=== PATIENT | female | born 1985 ===

== ENCOUNTER 2023-08-14 12:37 | Emergency (ER) | payer OTHER, SELFPAY ==
[2023-08-14 12:43] VITALS: BMI 32.0
[2023-08-14 12:47] VITALS: BP 132/75
[2023-08-14 13:01] VITALS: BP 122/80
[2023-08-14 13:10] LABS: % Basophils 0.4 % (0-2); % Eosinophils 0.2 % (0-6); % Immature Granulocytes 0.9 % (0-0.5); % Lymphocytes 7.5 % (20.5-51.1); % Monocytes 6.2 % (1.7-9.3); % Neutrophils 84.8 % (42.2-75.2); Absolute Basophils 0.1 10^3/uL (0-0.2); Absolute Eosinophils 0.1 10^3/uL (0-0.7); Absolute Immature Granulocytes 0.3 10^3/uL (0-0.05); Absolute Monocytes 1.7 10^3/uL (0.1-0.6); Absolute Neutrophils 22.7 10^3/uL (1.4-6.5); Hematocrit 45.5 % (37.0-47.0); Hemoglobin 15.6 g/dL (12.0-16.0); Mean Corp Hgb Conc. 34.3 g/dL (33.0-37.0); Mean Corpuscular Hgb 30.1 pg (27.0-31.0); Mean Corpuscular Volume 87.8 fL (81.0-99.0); Mean Platelet Volume 9.9 fL (7.4-10.4); Nucleated Red Blood Cells % 0 %; Platelet Count 438 10^3/uL (130-400); Red Blood Cell Count 5.18 10^6/uL (4.20-5.40); Red Cell Dist. Width 12.5 % (11.5-14.5); White Blood Cell Count 26.8 10^3/uL (4.8-10.8)
[2023-08-14 13:20] LABS: HCG, Serum Qualitative Screen Negative
[2023-08-14 13:21] LABS: ALT (SGPT) 26 U/L (0-35); AST (SGOT) 30 U/L (14-36); Albumin 5.1 g/dl (3.5-5.0); Alkaline Phosphatase 151 U/L (38-126); Blood Urea Nitrogen 12 mg/dl (7-17); Calcium 10.2 mg/dl (8.4-10.2); Carbon Dioxide 19 mmol/L (22-30); Chloride 104 mmol/L (98-107); Estimated Creatinine Clearance 103 ml/min; Glucose 127 mg/dl (70-99); Lipase 69 U/L (23-300); Potassium 4.6 mmol/L (3.5-5.1); Sodium 142 mmol/L (135-145); Total Bilirubin 0.4 mg/dl (0.2-1.3); Total Protein 9.1 g/dl (6.3-8.2); eGFR > 60.00
[2023-08-14 13:24] LABS: Lactic Acid 6.8 mmol/L (0.7-2.0)
--- NOTE | 2023-08-14 13:27 | ED.GENMED ---
History of Present Illness
General
Chief Complaint: Abdominal Pain
Source: patient
Time Seen by Provider: 08/14/23 13:19
Travel History
Have you had any contact with someone who has COVID-19?: No
Do you have any symptoms of coronavirus? Fever > 100 degrees, chills, cough, shortness of breath, sore throat, loss of taste or smell, muscle aches, or headache?: No
History of Present Illness
History of Present Illness:
38-year-old female presents to the emergency room complaining of nausea, vomiting, diarrhea and abdominal discomfort. Patient began feeling unwell last night. She feeling much worse this morning. She estimates was at least 5 episodes of vomiting.
Had at least 5 episodes of diarrhea. She is unaware of any blood or mucus in the stool. She is unaware of any sick contacts. Patient feels shaky and cold.
Phy Exam
Physical Exam
Physical Exam:
General: Awake, Alert, Oriented X3. Patient appears to feel unwell, somewhat anxious
Vitals: Not tachycardic, normal blood pressure
Head: Atraumatic
Eyes: Pupils equal, EOMI
Throat: Airway intact, no exudates, dry mucosa
Neck: Trachea midline
Lungs: Clear and equal b/l
Heart: Regular rate, no murmurs
Abd: Soft, no significant reproducible tenderness, No pulsatile mass
Neuro: Nonfocal
Skin: Warm, dry, no rash
Extremities: pulses equal b/l, no edema, appears somewhat peripherally vasoconstricted with pale and cool digits
Course
Orders/Labs/Results
Orders:
Orders
08/14/23 12:44
Electrocardiogram (*1) Urgent
Reason for Study: Abdominal Pain
EKG- Treatment ONCE
08/14/23 12:46
Test Result ONCE
08/14/23 12:56
Complete Blood Count/With Diff Urgent
Comprehensive Metabolic Panel Urgent
HCG, Serum Qualitative Screen Urgent
Lactic Acid Urgent
Lipase Urgent
Troponin I Urgent
Blood Culture Urgent
WILSON Source: Blood/Venous
Specimen Description:
08/14/23 13:04
Drug Screen, Urine [Urine Drug Abuse Screen] Urgent
Date Specimen was Collected: 08/14/23
Time Specimen was Collected: 13:03
Fentanyl, Urine Urgent
Urinalysis Reflex To Culture Urgent
Date Specimen was Collected: 08/14/23
Time Specimen was Collected: 13:03
Urine Microscopic Reflex Cult Urgent
08/14/23 13:25
Diphenhydramine [Benadryl] 25 mg IV NOW STA
Lactated Ringers [Lr] 1,000 ml IV BOLUS
Metoclopramide [Reglan] 10 mg IV NOW STA
08/14/23 13:26
CT Abd/pelvis W Iv Cont Urgent
Comment:
Reason For Exam: abd pain, elevated lactic acid
08/14/23 15:10
Lactate Level [Lactic Acid] Urgent
Abnormal Lab Results
08/14/23 08/14/23 08/14/23
12:56 13:04 15:10
WBC 26.8 H 10^3/uL
(4.8-10.8)
Plt Count 438 H 10^3/uL
(130-400)
Abs Immat Gran (auto) 0.3 H 10^3/uL
(0-0.05)
Absolute Neuts (auto) 22.7 H 10^3/uL
(1.4-6.5)
Absolute Monos (auto) 1.7 H 10^3/uL
(0.1-0.6)
Immature Gran % 0.9 H %
(0-0.5)
Neutrophils % 84.8 H %
(42.2-75.2)
Lymphocytes % 7.5 L %
(20.5-51.1)
Carbon Dioxide 19 L mmol/L
(22-30)
Glucose 127 H mg/dl
(70-99)
Lactic Acid 6.8 H* mmol/L 2.7 H mmol/L
(0.7-2.0) (0.7-2.0)
Alkaline Phosphatase 151 H U/L
(38-126)
Total Protein 9.1 H g/dl
(6.3-8.2)
Albumin 5.1 H g/dl
(3.5-5.0)
Urine Ketones 2+ A
(Negative)
Urine Bilirubin 2+ A
(Negative)
Leukocyte Esterase Rfl Trace A
(Negative)
Urine RBC 3-6 A /HPF
(0-2)
Urine Bacteria (Reflex) Few A
(Negative)
Urine Albumin (Reflex) 1+ A
(Neg - Trace)
U Benzodiazepines Scrn Positive H
(Negative)
08/14/23 12:56
08/14/23 12:56
Vital Signs
Initial and Last Documented VS:
Initial Vital Signs
Temp Pulse Resp BP Pulse Ox
97.1 F 73 23 132/75 100
08/14/23 12:47 08/14/23 12:47 08/14/23 12:47 08/14/23 12:47 08/14/23 12:47
Last Documented Vital Signs
Temp Pulse Resp BP Pulse Ox
97.1 F 89 16 122/74 97
08/14/23 12:47 08/14/23 17:15 08/14/23 17:15 08/14/23 17:00 08/14/23 17:15
MDM/Problems Addressed
Differential Diagnosis Includes:
Dehydration,, diverticulitis, viral gastroenteritis,
MDM/Problems Addressed:
Patient presents with weakness, diarrhea and generally feeling poorly. She was hyperventilating on arrival and appeared to have carpopedal spasm. She was treated with IV fluids, antiemetics and slowly calmed down. Her vital signs improved
significantly. She had an initial lactate which is quite elevated but this has normalized after IV fluids. Patient has ambulated to the bathroom. She feels much better. Currently she just feels generally weak. She has never been febrile.
Patient stable for discharge home. Patient did have urinalysis but it has a increased number of squamous epithelial cells suggesting contamination.
*Radiology
Radiology exam reviewed: radiology read reviewed
*Pulse Oximetry
Patient hypoxic: no
*EKG
Interpreted by ED Provider?: Yes
Interpretation: normal
Heart Rate: 73
Rate: normal
Rhythm: sinus
[place]: normal axis
Interval: normal interval
QRS Pattern: normal QRS
Ischemia: no ischemia
*Alterations Workroom Clerk Interpretation
Rate: normal
Rhythm: sinus
*Critical Care Note
Total Time (30-74mins, 75-104mins- exclusive of procedures): Not Applicable
ED Attending Note
-
Portions of this chart may have been created with voice recognition software.� Occasional wrong word or��sound alike� substitutions may have occurred due to the inherent limitations of voice recognition software.
Discharge Plan
Departure
Patient Disposition: Home (Routine Discharge)
Date of Disposition: 08/14/23
Time of Disposition: 17:44
Patient with high blood pressure during this ER visit?: No
Condition: Good
Discharge Problem:
Gastroenteritis, Diarrhea
Instructions: Diarrhea in teens and adults, Low Fiber Diet, Dehydration, Adult ED
Prescriptions:
New
ondansetron 4 mg tablet,disintegrating
4 mg PO TID PRN (Reason: nausea and vomiting) Qty: 20 0RF
No Action
fluoxetine [Prozac] 40 mg Capsule
40 mg PO DAILY
trazodone 50 mg Tablet
50 mg PO HSPRN PRN (Reason: sleep)
cetirizine [Zyrtec] 10 mg Tablet
10 mg PO DAILY
levonorgestrel-ethinyl estrad 0.1-20 mg-mcg tablet
1 tab PO DAILY
fluticasone propionate [Flonase] 50 mcg/actuation Emblem,Suspension
1 spray INTRANASAL DAILY
Referrals:
Anna Agrawal CRNP [Family Provider] -
Interventions
Interventions:
*Risk Screen - Suicide Last Done: 08/14/23 12:52
*General Assessment Last Done: 08/14/23 12:54
*Neglect/Abuse Screening Last Done: 08/14/23 12:52
ED- Fall Risk Assessment Last Done: 08/14/23 12:46
*ED COVID-19 Vaccine History Last Done: 08/14/23 12:46
TV-Buzrpi-Aecrrucoxu Assessment Last Done: 08/14/23 12:55
Discharge Date and Time
Print Language: [place]
[2023-08-14] MEDS: REGLAN 10 MG IV (13:30)
[2023-08-14 13:33] LABS: Troponin I < 0.012 ng/ml
[2023-08-14] MEDS: LR 1000 IV (13:37)
[2023-08-14 14:00] LABS: Urine Albumin 1+ (Neg - Trace); Urine Bilirubin 2+ (Negative); Urine Character Clear (Clear); Urine Color Yellow; Urine Glucose Negative (Negative); Urine Ketone 2+ (Negative); Urine Leukocyte Trace (Negative); Urine Nitrite Negative (Negative); Urine Occult Blood Negative (Negative); Urine Specific Gravity 1.025 (<1.030); Urine Urobilinogen 1+ (Neg - 1+)
[2023-08-14 14:19] LABS: Urine Squamous Cell 16-20 /LPF (Few)
[2023-08-14 14:20] LABS: Urine Calcium Oxalate Crystals Seen
[2023-08-14 14:21] LABS: Urine Bacteria Few (Negative)
[2023-08-14 14:25] LABS: Amphetamines Negative (Negative); Barbiturates Negative (Negative)
[2023-08-14 14:26] LABS: Benzodiazepines Positive (Negative); Buprenorphine Negative (Negative); Cocaine Negative (Negative); Marijuana Negative (Negative); Methadone Negative (Negative); Methamphetamines Negative (Negative); Opiates Negative (Negative); Phencyclidine Negative (Negative); Tricyclic Antidepressants Negative (Negative)
[2023-08-14 15:18] LABS: Fentanyl, Urine Negative (Negative)
[2023-08-14 15:38] LABS: Lactic Acid 2.7 mmol/L (0.7-2.0)
[2023-08-14 16:17] VITALS: BP 123/80
[2023-08-14 17:00] VITALS: BP 122/74
== END 2023-08-14 18:42 | disposition home or self-care (01) ==
LOC: EMR 12:37
PROVIDERS: EMERGENCY PHYSICIAN Emergency Medicine; FAMILY PHYSICIAN Nurse Practitioner Family
DX: R10.9 Unspecified abdominal pain (principal); R11.2 Nausea with vomiting, unspecified; R19.7 Diarrhea, unspecified
CPT/HCPCS: 99284; 96374; 96375; 74177; 80053; 80306; 80307; 81003; 81015; 83605; 83690; 84484; 84703; 85025; 87040; 93005; Q9967